=== PATIENT | female | born 1995 | race Two or more races ===

== ENCOUNTER 2016-08-09 21:47 | Outpatient (CLI) | payer MEDICAID, OTHER ==
[2016-08-09] MEDS ORDERED: IV START KIT ONE (22:14)
[2016-08-09] MEDS ORDERED: LACTATED RINGERS 1,000 ML ONE (22:15)
[2016-08-09] MEDS: LACTATED RINGERS 1,000 ML IV SCH (22:30)
[2016-08-09 22:50] VITALS: BMI 33.5
[2016-08-09] MEDS ORDERED: BETAMETHASONE ACET 6 MG/ML 5ML VIAL ONE (22:55)
[2016-08-09] MEDS: BETAMETHASONE ACET 6 MG/ML 5ML VIAL IM ONE (23:09)
[2016-08-09] MEDS ORDERED: PENICILLIN G POTASSIUM 5 MMU VIAL ONE (23:12)
[2016-08-09] MEDS ORDERED: NS 0.9% (MINI-BAG PLUS) 100 ML IV ONE (23:12)
[2016-08-09] MEDS: PENICILLIN G POTASSIUM 5 MMU in NS 0.9% (MINI-BAG PLUS) 100 ML IV ONE (23:17)
[2016-08-09] MEDS: NIFEDIPINE 10 MG CAPSULE PO ONE (23:27)
--- NOTE | 2016-08-09 23:38 | PDOC36 ---
Provider Note Note: cc: Admission H&P HPI: 20 y.o. year old SORAIDA 09/19/2016, by Last Menstrual Period and 23 wk US at 34w1d with an omphaloecele who presents after a large gush of fluid at 9 pm earlier today. Patient is grossly ruptured. REVIEW OF SYSTEMS GENERAL:~ No fever or headache EYES:~ No double or blurry vision. CARDIOVASCULAR:~ No chest pain. RESPIRATORY:~ No severe shortness of breath or cough. GASTROINTESTINAL:~ No nausea or vomiting or right upper quadrant pain.~ PSYCHIATRIC:~ No anxiety or depression. PROBLEMS High Risk Omphaloecele Polyhydramnios Abnormal 1hr GTT, Normal 3hr GTT OB HISTORY #: 1, Date: 12/16/10, Sex: Male, Weight: 4.8 kg (10 lb 9.3 oz), GA: 38w0d, Delivery: Vaginal, Spontaneous Delivery, Apgar1: None, Apgar5: None, Living: Yes , Comments: None #: 2, Current PSH Cholecystectomy SOC HX Reports that she has never smoked. She has never used smokeless tobacco. She reports that she does not drink alcohol or use illicit drugs. ALL No Known Allergies MEDICATIONS ~ [id number] ( VITAMINS PO), Take by mouth., Disp: , Rfl:~ PHYSICAL EXAMINATION VITAL SIGNS:~ 125/77, 87 bpm Estimated body mass index is 32.59 FHT:~ Category I [place]: q3 min SVE:~ FT/30/-2 GENERAL:~ No distress CARDIOVASCULAR:~ Regular rate and rhythm, no murmur, JVD or pedal edema. RESPIRATORY:~ Clear to auscultation bilaterally, respiratory effort is nonlabored at rest. GASTROINTESTINAL:~ Gravid no fundal tenderness NEUROLOGIC:~ Deep tendon reflexes are 2+ in the knees.~ Cranial nerves II-XII are grossly intact. PSYCHIATRIC:~ Alert and oriented x3, judgement and memory is intact, mood is pleasant. LABS & STUDIES A+ Antibody- Rubella Immune Hep B- HIV- GC/Chlamydia- Trep- Hgb 12.3 GBS Unknown ULTRASOUNDS 23 wk: Omphalocele vs Gastroschisis, echogenic cardiac focus. 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 The umbilical cord is thickened and eccentrically inserts into the abdominal wall in relation to the omphalocele. There is marginal cord insertion. Normal anatomic survey MELIA 34 wks = 24 cm ASSESSMENT 20 y.o. year old SORAIDA 09/19/2016, by Last Menstrual Period at 34w1d with omphaloecele with PPROM. PLAN PPROM: Patient is grossly ruptured, fern positive. Leeanne q3-5 minutes but not feeling contractions and not feeling the contractions. Her cervix has not changed in 1 hour, it remains . Bedside scan shows a vertex presentation. I spoke with Dr. Erwin with Perinatology who has graciously accepted transfer of the patient. She has received 1 dose of betamethasone and PCN as well as 10 mg of nifedipine for tocolysis for the trip to the [place]. Omphaloecele: Stable, will deliver at [facility]. Tj Jarquin MD MPH
[2016-08-10] MEDS ORDERED: PENICILLIN G 3 MIL UNIT PREMIX 3 MMU in Premix (D5W) 50 ml 1 EACH IV SCH (03:00)
== END 2016-08-10 00:10 | disposition home or self-care (01) ==
LOC: FBC 21:47 → FBCOUT 21:47
PROVIDERS: ATTEND Family Medicine
DX: O42.913 Preterm premature rupture of membranes, unspecified as to length of time between rupture and onset of labor, third trimester (principal); O40.3XX0 Polyhydramnios, third trimester, not applicable or unspecified; O26.893 Other specified pregnancy related conditions, third trimester; Q79.2 Exomphalos; Z3A.34 34 weeks gestation of pregnancy